=== PATIENT | female | born 1980 | race Caucasian/White ===

== ENCOUNTER 2016-09-09 11:08 | Emergency (ER) | payer OTHER ==
[~2016-09-09] VITALS: Ht 154.9 cm; Wt 81.6 kg
--- NOTE | 2016-09-09 11:26 | NUR ---
35 y/o female who comes in c/o left thumb pain, pt states she hurt it while closing at cabinet door, pt states she heard a "crack", + cms noted. awaiting for md to evaluate.
--- NOTE | 2016-09-09 11:31 | NUR ---
Md at bedside evaluating patient
[2016-09-09] MEDS ORDERED: IBUPROFEN 800 MG TABLET PO ONE (11:45)
--- NOTE | 2016-09-09 11:51 | NUR ---
automotive technician at bedside for thumb xray
[2016-09-09] MEDS ORDERED: IBUPROFEN 800 MG TABLET ONE (11:52)
--- NOTE | 2016-09-09 12:09 | NUR ---
at bedside re-evaluating patient
--- NOTE | 2016-09-09 12:09 | NUR ---
celso BAZZI applying thumb spica as ordered
--- NOTE | 2016-09-09 12:35 | NUR ---
Cd given to patient with xray results
--- NOTE | 2016-09-09 12:36 | NUR ---
+ cms noted on thumb spika patient tolerated well
--- NOTE | 2016-09-09 12:41 | NUR ---
pt discharged home is stable condition, thumb spika noted tolerated well. no pain ambulated with steady gait. discharge instructions given.
== END 2016-09-09 12:43 | disposition home or self-care (01) ==
LOC: ER 11:08
DX: S62.502A Fracture of unspecified phalanx of left thumb, initial encounter for closed fracture (principal); X58.XXXA Exposure to other specified factors, initial encounter; Y93.89 Activity, other specified; Y99.8 Other external cause status; Y92.89 Other specified places as the place of occurrence of the external cause
CPT/HCPCS: 73140; A4663